=== PATIENT | male | born 1960 | race Caucasian/White ===

== ENCOUNTER 2019-07-19 11:54 | Outpatient (CLI) | payer BC, SELFPAY ==
--- NOTE | ~2019-07-19 | XR_ITS ---
XR chest 2V DATE: 07/19/2019 12:17 INDICATION: Persistent nicotine dependence TECHNIQUE: PA and lateral views COMPARISON: None FINDINGS: There is some tenting of the right leaf of the diaphragm. The lungs appear mildly hyperinfl ated but clear of infiltrate or consolidation. No pleural effusion or pulmonary vascular congestion o r pneumothorax. Normal heart size. No hilar or mediastinal enlargement. There is minimal aortic unfolding. Included skeletal structures are unremarkable. IMPRESSION: No active cardiopulmonary disease Reviewed, dictated and finalized at location [facility]. [facility]
== END 2019-07-19 11:55 | disposition home or self-care (01) ==
LOC: ANHIMG 12:03
PROVIDERS: PCP Family Medicine; Visit Provider Family Medicine
DX: Z87.891 Personal history of nicotine dependence (principal)
CPT/HCPCS: 71046